=== PATIENT | male | born 1960 | race Two or more races ===

== ENCOUNTER 2023-06-14 19:28 | Emergency (ER) | payer MEDICAID, OTHER ==
[~2023-06-14] VITALS: Ht 175.3 cm; Wt 63.9 kg
[2023-06-15] MEDS ORDERED: IBUP-1454 PO (00:55)
[2023-06-15 02:16] VITALS: BP 156/76; PULSE 85; RESP 16; TEMP 97.9; O2SAT 98
== END 2023-06-15 02:16 | disposition home or self-care (01) ==
LOC: ER 19:28
DX: M19.071 Primary osteoarthritis, right ankle and foot (principal); M25.561 Pain in right knee; I10 Essential (primary) hypertension; M10.9 Gout, unspecified; Z79.1 Long term (current) use of non-steroidal anti-inflammatories (NSAID)
CPT/HCPCS: 73562; 73630